=== PATIENT | female | born 2000 | race American Indian/Alaskan Native ===

== ENCOUNTER 2021-11-09 00:57 | Emergency (ER) | payer OTHER ==
[2021-11-09 04:31] LABS: Basophils # (Auto) 0.2 K/mm3 (0.0-0.1); Basophils % (Auto) 1.6 % (0.0-1.8); Hematocrit 33.3 % (30.3-42.9); Hemoglobin 10.4 gm/dl (10.1-14.3); Lymphocytes # (Auto) 1.6 K/mm3 (1.2-5.4); Lymphocytes % (Auto) 15.3 % (13.4-35.0); Mean Corpuscular HGB Conc 31 % (30-34); Monocytes # (Auto) 0.7 K/mm3 (0.0-0.8); Monocytes % (Auto) 6.3 % (0.0-7.3); Platelet Count 290 K/mm3 (140-440); Red Blood Count 5.15 M/mm3 (3.65-5.03); Red Cell Distribution Width 18.6 % (13.2-15.2)
[2021-11-09 04:32] LABS: Mean Corpuscular Volume 65 fl (79-97)
[2021-11-09] MEDS ORDERED: LORazepam 1 MG TAB PO ONE (04:38)
[2021-11-09 04:47] LABS: Blood Urea Nitrogen 8 mg/dL (7-17); Calcium 9.2 mg/dL (8.4-10.2); Hemolysis Index 2
[2021-11-09 05:01] LABS: BUN/Creatinine Ratio 16
--- NOTE | 2021-11-09 07:04 | Emergency Department Report ---
ED Psych HPI - General Chief Complaint: Psych Stated Complaint: MORIS CINTRON Source: patient Mode of arrival: Ambulatory Limitations: Other (This patient apparently presented as suicidal. She however denies that at this time. The patient is very vague with the information she is providing.) - History of Present Illness MD Complaint: feels depressed -: Gradual, days(s) Time: 04:00 Associated Psychiatric Symptoms: none Improves With: none Worsens With: none (The patient denies any alcohol or drug abuse and says that she has not slept in several days) Associated Symptoms: denies: confusion, headache, nausea, vomiting Treatments Prior to Arrival: none - Related Data Allergies Allergy/AdvReac Type Severity Reaction Status Date / Time No Known Allergies Allergy Unverified 11/09/21 01:07 ED Review of Systems ROS: Stated complaint: MORIS CINTRON Other details as noted in HPI Constitutional: denies: chills, fever ENT: denies: ear pain, throat pain Respiratory: denies: cough, shortness of breath, wheezing Cardiovascular: denies: chest pain, palpitations Endocrine: no symptoms reported Gastrointestinal: denies: abdominal pain, nausea, diarrhea Genitourinary: denies: urgency, dysuria, discharge Musculoskeletal: denies: back pain, joint swelling, arthralgia Skin: denies: rash, lesions Neurological: denies: headache, weakness, paresthesias Psychiatric: anxiety, depression. denies: auditory hallucinations, visual hallucinations, homicidal thoughts Hematological/Lymphatic: denies: easy bleeding, easy bruising ED Physical Exam - General Limitations: No Limitations General appearance: alert - Head Head exam: Present: atraumatic, normocephalic - Eye Eye exam: Present: normal appearance - ENT ENT exam: Present: mucous membranes dry - Neck Neck exam: Present: normal inspection - Respiratory Respiratory exam: Present: normal lung sounds bilaterally. Absent: respiratory distress - Cardiovascular Cardiovascular Exam: Present: regular rate, normal rhythm. Absent: systolic murmur, diastolic murmur, rubs, gallop - GI/Abdominal GI/Abdominal exam: Present: soft, normal bowel sounds - Rectal Rectal exam: Present: deferred - Extremities Exam Extremities exam: Present: normal inspection, full ROM, normal capillary refill. Absent: joint swelling - Back Exam Back exam: Present: normal inspection - Neurological Exam Neurological exam: Present: alert, oriented X3 - Psychiatric Psychiatric exam: Present: depressed, anxious, flat affect. Absent: homicidal ideation - Skin Skin exam: Present: warm, dry ED Course Vital Signs 11/09/21 01:02 Temperature 98.6 F Pulse Rate 125 H Respiratory 18 Rate Blood Pressure 127/81 O2 Sat by Pulse 99 Oximetry ED Medical Decision Making - Lab Data Result diagrams: 11/09/21 04:05 11/09/21 04:05 - Medical Decision Making Patient became anxious and was ready to sign herself out of the emergency department. She was given 2 mg of Ativan p.o. which seems to have helped. The current plan is to have the patient evaluated by mental health service to determine if she needed to be placed on a 1013 could be discharged with social service and mental health follow-up. Critical care attestation.: If time is entered above; I have spent that time in minutes in the direct care of this critically ill patient, excluding procedure time. ED Disposition Condition: Stable Referrals: PRIMARY CARE, [Primary Care Provider] - 3-5 Days
[2021-11-09 07:48] LABS: Amphetamine Screen,Urine PRESUMPTIVE NEGATIVE; Benzodiazepines Screen,Urine PRESUMPTIVE NEGATIVE; Cannabinoid Screen,Urine PRESUMPTIVE POSITIVE; Cocaine Screen,Urine PRESUMPTIVE NEGATIVE; Methadone Screen,Urine PRESUMPTIVE NEGATIVE; Opiate Screen,Urine PRESUMPTIVE NEGATIVE
[2021-11-09 08:06] LABS: Mucus,Urine FEW /HPF
[2021-11-09 08:15] LABS: Bilirubin,Urine Negative (Negative); Color,Urine Straw (Yellow)
[2021-11-09 08:16] LABS: Blood,Urine Negative (Negative)
[2021-11-09 08:17] LABS: Protein,Urine <15 mg/dL mg/dL (Negative); Urobilinogen,Urine < 2.0 mg/dL (<2.0)
--- NOTE | 2021-11-09 10:40 | Consultation ---
History of Present Illness - Reason for Consult Consult date: 11/09/21 Reason for consult: SI - History of Present Psychiatric Illness The patient was seen today. She presented to the ER with SI. The patient states that last night was once of the worst episodes she's had. She says she has very bad anxiety and is bipolar. The patient says she has's slept in days. She says she is depressed and her appetite is poor. She endorses SI. When asked if she had a plan, the patient initially says "not really." I asked the patient what did "not really" mean? She replies "if I had a way to do it that wasn't painful. Something that was quick and not painful." She says she was hearing voices yesterday, but denies hearing them today. PAST PSYCHIATRIC HISTORY Diagnoses: bipolar, anxiety Suicide attempts or Self-harm behavior: Denies Prior psychiatric hospitalizations: Denies Substance Abuse history: THC Previous psychiatric medications tried: Denies Outpatient treatment: Denies PAST MEDICAL HISTORY: None reported Family Psychiatric History: None reported or documented SOCIAL HISTORY Living arrangement: with mother Marital status: Single Employed REVIEW OF SYSTEMS Constitutional: Negative for weight loss ENT: Negative for stridor Respiratory: Negative for cough or hemoptysis All other systems reviewed and are negative MENTAL STATUS EXAMINATION General Appearance and Behavior: Age appropriate, good hygiene, wearing appropriate clothes, good eye contact, calm, cooperative Cooperation: Participating/engaged, but Guarded Psychomotor Behavior: Psychomotor normal Mood: depressed Affect and affective range: congruent with stated mood Thought Process: goal directed Thought Content: SI, hallucinations yesterday Speech: normal tone and pace Suicidal Ideation: Yes Homicidal Ideation: Denies Hallucinations: Denies Delusions: None elicited Impulse Control: Limited Insight and Judgment: Limited insight and judgment Memory: Limited Attention: Divided Orientation: Alert, oriented Assessment and Plan Bipolar Disorder Treatment 1013 Vistaril 25mg po BID Zoloft 25mg po daily Sitter: Per primary Medical: Per primary Disposition: Recommend acute psychiatric inpatient treatment Will follow. Thank you for this consult Case staffed with Dr. Oneal Medications and Allergies Allergies Allergy/AdvReac Type Severity Reaction Status Date / Time No Known Allergies Allergy Unverified 11/09/21 01:07 Home Medications Medication Instructions Recorded Confirmed Last Taken Type No Known Home Medications [No 11/09/21 11/09/21 Unknown History Reported Home Medications] Mental Status Exam - Vital signs Last Vital Signs Temp 99 F 11/09/21 08:29 Pulse 106 H 11/09/21 08:29 Resp 16 11/09/21 08:29 BP 120/78 11/09/21 08:29 Pulse Ox 100 11/09/21 09:26 Results Result Diagrams: 11/09/21 04:05 11/09/21 04:05 Abnormal lab results 11/09/21 11/09/21 11/09/21 Range/Units 03: 04:05 04:05 RBC (3.65-5.03) M/mm3 MCV (79-97) fl MCH (28-32) pg RDW (13.2-15.2) % Baso # (Auto) (0.0-0.1) K/mm3 Seg Neutrophils % (40.0-70.0) % Seg Neutrophils # (1.8-7.7) K/mm3 Creatinine (0.6-1.2) mg/dL Glucose (65-100) mg/dL HCG, Quant 115.6 H (0-4) mIU/mL Salicylates < 0.3 L (2.8-20.0) mg/dL Acetaminophen 5.0 L (10.0-30.0) ug/mL 11/09/21 11/09/21 Range/Units 04:05 04:05 RBC 5.15 H (3.65-5.03) M/mm3 MCV 65 L (79-97) fl MCH 20 L (28-32) pg RDW 18.6 H (13.2-15.2) % Baso # (Auto) 0.2 H (0.0-0.1) K/mm3 Seg Neutrophils % 76.8 H (40.0-70.0) % Seg Neutrophils # 8.1 H (1.8-7.7) K/mm3 Creatinine 0.5 L (0.6-1.2) mg/dL Glucose 112 H (65-100) mg/dL HCG, Quant (0-4) mIU/mL Salicylates (2.8-20.0) mg/dL Acetaminophen (10.0-30.0) ug/mL All other labs normal.
[2021-11-09] MEDS ORDERED: hydrOXYzine PAMOATE 25 MG CAP PO PRN (10:42)
--- NOTE | 2021-11-09 11:51 | Event Note ---
Date: 11/09/21 vss , no distres no events overight medically cleared pt has positive test psych assessed : recommenced inpatient psych
[2021-11-09] MEDS ORDERED: SERTRALINE 25 MG TAB PO SCH (12:00)
[2021-11-09 16:42] VITALS: BP 124/80
== END 2021-11-09 16:41 ==
LOC: EEVIPCON 00:57 → ED 00:57
DX: R45.851 Suicidal ideations (principal); Z20.822 Contact with and (suspected) exposure to COVID-19; Z79.899 Other long term (current) drug therapy
CPT/HCPCS: 36415; 80048; 80307; 81001; 84702; 84703; 85025; 99285; U0003; 80320; G0480